=== PATIENT | male | born 1985 | race Caucasian/White ===

== ENCOUNTER 2017-07-14 21:16 | Emergency (ER) | payer OTHER ==
[~2017-07-14] VITALS: Ht 162.6 cm; Wt 65.0 kg
--- NOTE | 2017-07-14 21:36 | PD ---
HPI Chief Complaint: Psych Time Seen by Provider: 21:35 Travel History International Travel<30 days: No Contact w/Intl Traveler<30days: No Traveled to known affect area: No History of Present Illness HPI 32-year-old male with history of schizoaffective disorder is brought in by the police under the Flynn act for being verbally and physically aggressive towards his mother. The police report states that he has not been taking his medication as previously prescribed. Patient threatened the police officers as well when they arrived. Patient has no medical complaints. Patient is allergic to sulfa and penicillin. PFSH Past Medical History Depression: Yes Hepatitis: Yes (NEWLY DIAGNOSED) Psychiatric: Yes Past Surgical History Tonsillectomy: Yes Other Surgery: Yes (WISDOM TEETH) Social History Alcohol Use: Yes (ALMOST DAILY) Tobacco Use: Yes (PACK DAILY) Substance Use: No (CLEAN FROM DRUGS FOR 2 YRS) Allergies-Medications (Allergen,Severity, Reaction): Coded Allergies: Sulfa (Sulfonamide Antibiotics) (Unverified Allergy, Severe, Hives, ) penicillin G (Unverified Allergy, Severe, Hives, 05/25/17) THROATS SWELLS UP Reported Meds & Prescriptions Reported Meds & Active Scripts Active Reported Buspirone (Buspirone HCl) 10 Mg Tab 10 Mg PO BID Divalproex DR (Divalproex Sodium) 500 Mg Tabdr 500 Mg PO BID Olanzapine 10 Mg Tab 10 Mg PO HS Zoloft (Sertraline HCl) 50 Mg Tab 50 Mg PO DAILY Review of Systems Except as stated in HPI: all other systems reviewed are Neg General / Constitutional: No: Fever Eyes: No: Visual changes HENT: No: Headaches Cardiovascular: No: Chest Pain or Discomfort Respiratory: No: Shortness of Breath Gastrointestinal: No: Abdominal Pain Genitourinary: No: Dysuria Musculoskeletal: No: Pain Skin: No Rash Neurologic: No: Weakness Psychiatric: No: Depression Endocrine: No: Polydipsia Hematologic/Lymphatic: No: Easy Bruising Physical Exam Exam Limitations: Uncooperative, Psychotic Narrative GENERAL: Patient is visibly agitated and pacing. No obvious medical issues. SKIN: Warm and dry. Normal color. Normal turgor. No obvious signs of trauma. HEAD: Atraumatic. Normocephalic. EYES: Pupils equal and round. No scleral icterus. No injection or drainage. ENT: No nasal bleeding or discharge. Mucous membranes pink and moist. Pharynx is clear. Airway is patent. NECK: Trachea midline. Supple. CARDIOVASCULAR: Regular rate and rhythm. RESPIRATORY: No accessory muscle use. Clear to auscultation. Breath sounds equal bilaterally. MUSCULOSKELETAL: Extremities without clubbing, cyanosis, or edema. No obvious deformities. NEUROLOGICAL: Awake and alert. No obvious cranial nerve deficits. Motor grossly within normal limits. Five out of 5 muscle strength in the arms and legs. Normal speech. PSYCHIATRIC: Patient has pressured speech. Pacing. Uncooperative. Data Data Last Documented VS Vital Signs Date Time Temp Pulse Resp B/P (MAP) Pulse Ox O2 Delivery O2 Flow Rate FiO2 07/14/17 21:41 98.9 67 22 120/76 (91) 100 Orders Orders Complete Blood Count With Diff (07/14/17 21:42) Comprehensive Metabolic Panel (07/14/17 21:42) Psych Screen (07/14/17 21:42) Drug Screen, Random Urine (07/14/17 21:42) Diphenhydramine Inj (Benadryl Inj) (07/14/17 22:00) Haloperidol Inj (Haldol Inj) (07/14/17 22:00) Lorazepam Inj (Ativan Inj) (07/14/17 22:00) Nicotine 21 Mg Patch.24 Hr (Habitrol 21 (07/14/17 22:00) Labs Laboratory Tests Test 07/14/17 21:40 07/14/17 21:45 White Blood Count 10.3 TH/MM3 Red Blood Count 4.87 MIL/MM3 Hemoglobin 15.5 GM/DL Hematocrit 44.4 % Mean Corpuscular Volume 91.2 FL Mean Corpuscular Hemoglobin 31.8 PG Mean Corpuscular Hemoglobin Concent 34.9 % Red Cell Distribution Width 12.7 % Platelet Count 264 TH/MM3 Mean Platelet Volume 7.0 FL Neutrophils (%) (Auto) 42.7 % Lymphocytes (%) (Auto) 44.9 % Monocytes (%) (Auto) 8.4 % Eosinophils (%) (Auto) 3.0 % Basophils (%) (Auto) 1.0 % Neutrophils # (Auto) 4.4 TH/MM3 Lymphocytes # (Auto) 4.6 TH/MM3 Monocytes # (Auto) 0.9 TH/MM3 Eosinophils # (Auto) 0.3 TH/MM3 Basophils # (Auto) 0.1 TH/MM3 CBC Comment DIFF FINAL Differential Comment Urine Opiates Screen NEG Urine Barbiturates Screen NEG Urine Amphetamines Screen NEG Urine Benzodiazepines Screen NEG Urine Cocaine Screen POS Urine Cannabinoids Screen NEG MDM Medical Decision Making Medical Screen Exam Complete: Yes Emergency Medical Condition: Yes Medical Record Reviewed: Yes Differential Diagnosis Psychosis. Agitation. Homicidal and suicidal ideation. Flynn act. Narrative Course Labs ordered per psychiatric protocol. Patient became more agitated, and security was called the patient was given 50 mg Benadryl IM, 5 mg Haldol IM, and 1 mg lorazepam IM. CBC is unremarkable. CMP is unremarkable. Urine tox screen is positive for cocaine. Patient is medically cleared for psychiatric evaluation. Diagnosis Primary Impression: Medical clearance for psychiatric admission Condition: Stable Joe Pak Jul 14, 2017 21:36
[2017-07-14 21:41] VITALS: BP 120/76; PULSE 67; RESP 22; TEMP 98.9; O2SAT 100
[2017-07-14 21:57] LABS: AUTOMATED NEUTROPHIL # 4.4 TH/MM3 (1.8-7.7); BASOPHIL # 0.1 TH/MM3 (0-0.2); EOSINOPHIL # 0.3 TH/MM3 (0-0.4); HEMATOCRIT 44.4 % (39.0-51.0); HEMO FLAGS DIFF FINAL; LYMPH % 44.9 % (9.0-44.0); LYMPHOCYTE # 4.6 TH/MM3 (1.0-4.8); MEAN CELL VOLUME 91.2 FL (80.0-100.0); MEAN CORPUSCULAR HEMOGLOBIN 31.8 PG (27.0-34.0); MEAN CORPUSCULAR HGB CONC 34.9 % (32.0-36.0); MONO % 8.4 % (0.0-8.0); NEUT % 42.7 % (16.0-70.0); PLATELET COUNT 264 TH/MM3 (150-450); RED BLOOD COUNT 4.87 MIL/MM3 (4.50-5.90); RED CELL DISTRIBUTION WIDTH 12.7 % (11.6-17.2); WHITE BLOOD COUNT 10.3 TH/MM3 (4.0-11.0)
[2017-07-14] MEDS ORDERED: diphenhydrAMINE HCL 50 MG/ML VIAL IM ONE (22:00)
[2017-07-14] MEDS ORDERED: HALOPERIDOL LACTATE 5 MG/ML AMP IM ONE (22:00)
[2017-07-14] MEDS ORDERED: LORazepam 2 MG/ML VIAL IM ONE (22:00)
[2017-07-14] MEDS ORDERED: NICOTINE 21 MG/24 HR PATCH T-DERMAL ONE (22:00)
[2017-07-14] MEDS ORDERED: BUSP10TA PO (22:30)
[2017-07-14] MEDS ORDERED: OLAN10TA PO (22:30)
[2017-07-14] MEDS ORDERED: DIVA500T PO (22:30)
[2017-07-14] MEDS ORDERED: ZOLO50TA PO (22:30)
[2017-07-14 22:37] LABS: ALT (GPT) 31 U/L (12-78); ANION GAP 9 MEQ/L (5-15); AST (GOT) 19 U/L (15-37); BICARBONATE 24.8 MEQ/L (21.0-32.0); BLOOD UREA NITROGEN 11 MG/DL (7-18); CHLORIDE 103 MEQ/L (98-107); GLOMERULAR FILTRATION RATE 83 ML/MIN (>89); POTASSIUM 3.3 MEQ/L (3.5-5.1); SODIUM (NA) 137 MEQ/L (136-145)
[2017-07-14] MEDS ORDERED: MAPA500T13 PO (22:37)
[2017-07-14 22:39] LABS: ALKALINE PHOSPHATASE 79 U/L (45-117); TOTAL BILIRUBIN ADULT 0.4 MG/DL (0.2-1.0)
[2017-07-14 23:43] VITALS: BP 88/51; PULSE 64; RESP 18; O2SAT 97
[2017-07-15 10:36] VITALS: BP 120/97; PULSE 97; RESP 18; O2SAT 98
[2017-07-15 15:18] VITALS: BP 120/97; PULSE 97; RESP 18; O2SAT 98
== END 2017-07-15 15:25 | disposition home or self-care (01) ==
LOC: NEPD 21:16 → NEPJ 07-15 15:25
DX: F25.9 Schizoaffective disorder, unspecified (principal); F32.9 Major depressive disorder, single episode, unspecified; K75.9 Inflammatory liver disease, unspecified; F17.200 Nicotine dependence, unspecified, uncomplicated; Z79.899 Other long term (current) drug therapy; Z88.0 Allergy status to penicillin; Z88.2 Allergy status to sulfonamides
CPT/HCPCS: 80053; 80307; 85025; 96372; 99284; J1200; J1630; J2060